=== PATIENT | male | born 1995 | race Caucasian/White ===

== ENCOUNTER → 2016-07-14 | Outpatient (CLI) | payer OTHER | END | disposition home or self-care (01) | LOC: C.RDSM 16:43 | PROVIDERS: ATTEND Physical Medicine & Rehabilitation Sports Medicine | DX: M25.511 Pain in right shoulder (principal) ==

== ENCOUNTER → 2016-07-15 | Outpatient (CLI) | payer OTHER ==
--- NOTE | 2016-07-15 12:12 | DIAGNOSTIC IMAGING REPORT ---
RIGHT SHOULDER INJECTION UNDER FLUOROSCOPIC GUIDANCE CLINICAL HISTORY: Right shoulder pain. Throwing injury. Injection for MR arthrogram. PROCEDURE: The risks, benefits, and alternatives to the procedure were discussed with the patient. Written informed consent was obtained. The patient was placed supine on the fluoroscopy table, and a right shoulder injection was performed under fluoroscopic guidance. The area was prepped and draped in the usual sterile fashion. The skin and soft tissues anesthetized with local 1% lidocaine. The right shoulder joint was accessed utilizing a 22-gauge needle, and approximately 7 cc of a mixture of gadolinium contrast, Optiray 300, and saline was injected into the joint space under fluoroscopic guidance. There was normal distention of the capsule. The procedure was well tolerated and without immediate complication. The patient was then transferred to MRI for MR arthrography. FLUOROSCOPY TIME: 11 seconds. IMPRESSION: Unremarkable injection of the right shoulder under fluoroscopic guidance. Electronically signed by: Dony Snyder M.D. 07/15/2016 12:11 PM Dictated Date/Time: 07/15/2016 12:10 PM
--- NOTE | 2016-07-15 12:44 | DIAGNOSTIC IMAGING REPORT ---
MRI right shoulder RIGHT UPPER EXTREMITY JOINT W/ CLINICAL HISTORY: RIGHT SHOULDER Pain, r/o LABE RAL TEAR Right pain TECHNIQUE: Multi axial MRI acquisition post arthrography COMPARISON STUDY: None FINDINGS: Signal characteristics the osseous structures are unremarkable throughout. There is no bone marrow replacing process. Rotator cuff is intact. There is a mild degree of subscapularis tendinopathy. All remaining components of the rotator cuff are intact. Evaluation of the glenoid labrum shows mild fibrillation with microtears of the anterior as well as posterior labral margin. A major substance compromising tear is not felt to be present. IMPRESSION: 1. Moderate tendinopathy of the subscapularis and to a lesser extent supraspinatus tendon. 2. No evidence for rotator cuff tear. 3. 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 Electronically signed by: Joshua Elder M.D. 07/15/2016 12:42 PM Dictated Date/Time: 07/15/2016 12:36 PM
== END | disposition home or self-care (01) ==
LOC: C.MRIBC 11:17
PROVIDERS: ATTEND Physical Medicine & Rehabilitation Sports Medicine
DX: M25.511 Pain in right shoulder (principal); M62.89 Other specified disorders of muscle

== ENCOUNTER → 2016-10-12 | Outpatient (CLI) | payer OTHER ==
--- NOTE | 2016-10-12 14:21 | DIAGNOSTIC IMAGING REPORT ---
LEFT HEEL MIN 2 VIEWS CLINICAL HISTORY: LEFT HEEL PAIN COMPARISON: None. DISCUSSION: There is a small plantar calcaneal spur. No fractures are visualized. There are no erosive or destructive changes. A lucency within the anterior aspect of the calcaneus, likely represents a projectional artifact. IMPRESSION: 1. No acute fractures 2. Small plantar calcaneal spur Electronically signed by: Froilan Rivera M.D. 10/12/2016 2:20 PM Dictated Date/Time: 10/12/2016 2:19 PM
== END | disposition home or self-care (01) ==
LOC: C.RDSM 14:07
PROVIDERS: ATTEND Internal Medicine
DX: M79.672 Pain in left foot (principal); M79.89 Other specified soft tissue disorders